=== PATIENT | female | born 1960 | race Two or more races ===

== ENCOUNTER → 2016-09-05 | Outpatient (CLI) | payer OTHER | LOC: CIMAGING 07:03 | PROVIDERS: ATTEND Family Medicine | DX: Z12.31 Encounter for screening mammogram for malignant neoplasm of breast (principal) | CPT/HCPCS: G0202 ==

== ENCOUNTER → 2017-09-07 | Outpatient (CLI) | payer OTHER | LOC: CIMAGING 13:48 | PROVIDERS: ATTEND Family Medicine | DX: Z12.31 Encounter for screening mammogram for malignant neoplasm of breast (principal) ==